=== PATIENT | female | born 1965 | race Caucasian/White ===

== ENCOUNTER 2017-10-15 07:35 | Outpatient (CLI) | payer OTHER ==
--- NOTE | 2017-10-15 08:16 | RAD ---
PA AND LATERAL CHEST: History: Chest pain. FINDINGS/IMPRESSION: The heart size is normal. The lungs are expanded without focal areas of consolidation, or pleural eff usions. There is linear atelectasis or scarring in the left lung. No acute osseous abnormalities are seen. POS: [facility]
== END 2017-10-15 07:36 | disposition home or self-care (01) ==
LOC: RAD-FRANK 07:35
PROVIDERS: ATTEND Nurse Practitioner Family
DX: R07.9 Chest pain, unspecified (principal); J98.11 Atelectasis
CPT/HCPCS: 71046

== ENCOUNTER 2017-10-16 12:59 | Emergency (ER) | payer OTHER ==
[2017-10-16] MEDS ORDERED: ISOVUE-370 76%-LOCM 1 ML ONE (13:05)
[2017-10-16 13:20] LABS: #Basophils 0.1 thou/uL (0.0-0.2); #Eosinphils 0.2 thou/uL (0.0-0.7); #Lymphocytes 2.3 thou/uL (1.20-3.40); #Monocytes 0.3 thou/uL (0.11-0.59); #Neutrophils 3.6 thou/uL (1.40-6.50); %Basophils 1.4 % (0.0-1.0); %Eosinophils 3.3 % (0.0-10.0); %Lymphocytes 35.5 % (21.0-51.0); %Monocytes 4.1 % (0.0-10.0); %Neutrophils 55.7 % (42.0-75.0); Hemoglobin 16.6 g/dL (12.0-16.0); Mean Corpuscular HGB CONC 34.9 g/dL (32.0-36.0); Mean Corpuscular Hemoglobin 34.2 pg (27.0-31.0); Mean Corpuscular Volume 97.7 fl (81.0-99.0); Mean Platelet Volume 7.9 fL (7.4-10.4); Platelet Count 210 thou/uL (130-400); RBC Distribution Width 11.8 % (11.5-14.5); Red Blood Cell (RBC) Count 4.86 mill/uL (4.20-5.40); White Blood Cell (WBC) Count 6.5 thou/uL (4.8-10.8)
[2017-10-16 13:41] LABS: CKMB 1.5 ng/mL (0-6.6); Troponin I Less than 0.010 ng/mL (< 0.028)
[2017-10-16 13:42] LABS: ALT (SGPT) 16 U/L (8-55); AST (SGOT) 23 U/L (5-34); Albumin 4.4 g/dL (3.5-5.0); Alkaline Phosphatase 74 U/L (40-150); Anion Gap 13 mmol/L (10-20); BUN (Urea Nitrogen) 11 mg/dL (9.8-20.1); Bilirubin, Total 0.4 mg/dL (0.2-1.2); Calc. Creatinine Clearance 0 mL/min (70-130); Calcium 9.7 mg/dL (7.8-10.44); Carbon Dioxide 25 mmol/L (22-29); Chloride 106 mmol/L (98-107); Estimated GFR-MDRD Greater than 90; Globulin 4.4 g/dL (2.4-3.5); Glucose 89 mg/dL (70-105); Protein, Total 8.8 g/dL (6.0-8.3); Sodium 139 mmol/L (136-145)
--- NOTE | 2017-10-16 13:46 | RAD ---
SINGLE VIEW OF THE CHEST: History: Chest pain. FINDINGS: Single view of the chest shows a normal sized cardiomediastinal silhouette. There is no evidence of c onsolidation, mass, or pleural effusion. The bones are unremarkable. IMPRESSION: No evidence of acute cardiopulmonary disease. POS: [facility]
--- NOTE | 2017-10-16 14:32 | CT ---
CTA OF THE THORAX UTILIZING IV CONTRAST WITH PE PROTOCOL AND 3D REFORMATTED IMAGING: Date: 10/16/17 INDICATION: Elevated D-Dimer and chest pain. COMPARISON: None. FINDINGS: No central or segmental pulmonary embolus is evident. There is moderate emphysema. No air space consolidation is evident. There is some subsegmental volume loss within the lingula. There is a 4 mm pulmonary nodule within the right middle lobe. There are areas of nodular soft tissue density seen within the central air column, particularly withi n the right mainstem bronchus, on image 47 of series 3 measuring 8.0 mm. Additional smaller nondepend ent densities are seen within the right interlobar bronchus on images 56, 60, and 62. There is some e ccentric soft tissue density seen within the posterior segmental branch of the left lower lobe on sawyer ge 74 of series 3. There is a density seen within the left upper lobe bronchus on image 58 of series 3. Short-term follow-up with preprocedure vigorous coughing is recommended to document if these lesio ns are related to mucus rather than airway soft tissue masses. No pathologically enlarged lymph nodes are evident. Visualized upper abdomen reveals no definite acute abnormality. There is scattered degenerative and o steoarthritic change. IMPRESSION: 1. No central or segmental pulmonary embolus demonstrated. 2. Eccentric soft tissue densities seen within the bronchi of the central chest may reflect eccentri c mucus deposits; however, papillomas cannot be entirely excluded. Follow up as above. 3. Moderate emphysema. CODE T. POS: [facility]
[2017-10-16] MEDS ORDERED: Morphine 10 MG/ML VIAL SLOW IVP SCH (14:45)
== END 2017-10-16 15:08 | disposition home or self-care (01) ==
LOC: ERS 12:59
DX: R07.89 Other chest pain (principal); I10 Essential (primary) hypertension; E78.00 Pure hypercholesterolemia, unspecified; F17.210 Nicotine dependence, cigarettes, uncomplicated; Z79.899 Other long term (current) drug therapy
CPT/HCPCS: 71045; 71275; 80053; 82553; 84484; 85025; 85379; 93005; 96374; J2270

== ENCOUNTER 2018-07-22 11:05 | Outpatient (CLI) | payer OTHER ==
--- NOTE | 2018-07-22 11:41 | RAD ---
LEFT FOOT THREE VIEWS: History: Left foot pain. FINDINGS/IMPRESSION: No fracture, dislocation, or bony destruction is identified. POS: [facility]
--- NOTE | 2018-07-22 12:03 | RAD ---
LEFT KNEE FOUR VIEWS: HISTORY: Left knee pain. FINDINGS: No fracture, dislocation, or bony destruction is identified. Minimal degenerative changes are presen t. POS: [facility]
== END 2018-07-22 11:06 | disposition home or self-care (01) ==
LOC: RAD-FRANK 11:05
PROVIDERS: ATTEND Nurse Practitioner Family
DX: M25.562 Pain in left knee (principal); M79.672 Pain in left foot; M17.12 Unilateral primary osteoarthritis, left knee

== ENCOUNTER 2018-09-10 13:45 | Outpatient (CLI) | payer OTHER ==
--- NOTE | 2018-09-10 14:55 | ULT ---
VENOUS DOPPLER ULTRASOUND OF LEFT LOWER EXTREMITY: Date: 09/10/18 HISTORY: Left foot pain, left lower extremity pain. TECHNIQUE: Soto scale ultrasound with color flow and spectral Doppler imaging of the deep venous system of the l eft lower extremity performed. FINDINGS: There is good flow, compression, and augmentation noted in the left common femoral, femoral, deep fem oral, popliteal, posterior tibial, and greater saphenous veins. IMPRESSION: No evidence of deep venous thrombosis in the left lower extremity. POS: [facility]
== END 2018-09-10 13:46 | disposition home or self-care (01) ==
LOC: BICULT 13:45
PROVIDERS: ATTEND Internal Medicine
DX: M79.672 Pain in left foot (principal); R68.89 Other general symptoms and signs

== ENCOUNTER 2018-12-30 09:01 | Outpatient (CLI) | payer OTHER ==
--- NOTE | 2019-01-25 10:33 | MMO ---
Bilateral MAMMO Bilat Screen [facility]. CLINICAL HISTORY: Patient is 53 years old and is seen for screening. The patient has no family history of breast cancer. The patient has no personal history of cancer. VIEWS: The views performed were: bilateral craniocaudal and bilateral mediolateral oblique. FILMS COMPARED: The present examination has been compared to a prior imaging study performed at [facility] on 03/29/2016. This study has been interpreted with the assistance of computer-aided detection. MAMMOGRAM FINDINGS: There are scattered fibroglandular densities. There are no suspicious masses, suspicious calcifications, or new areas of architectural distortion. IMPRESSION: THERE IS NO MAMMOGRAPHIC EVIDENCE OF MALIGNANCY. A ROUTINE FOLLOW-UP MAMMOGRAM IN 1 YEAR IS RECOMMENDED. ACR BI-RADS Category 1 - Negative MAMMOGRAPHY NOTE: 1. A negative mammogram report should not delay a biopsy if a dominant of clinically suspicious mass is present. 2. Approximately 10% to 15% of breast cancers are not detected by mammography. 3. Adenosis and dense breasts may obscure an underlying neoplasm.
== END 2018-12-30 09:02 | disposition home or self-care (01) ==
LOC: SCSMAMMO 09:01
PROVIDERS: ATTEND Nurse Practitioner Family
DX: Z12.31 Encounter for screening mammogram for malignant neoplasm of breast (principal)
CPT/HCPCS: 77067

== ENCOUNTER 2019-11-11 07:47 | Outpatient (CLI) | payer OTHER ==
--- NOTE | 2019-11-11 08:08 | RAD ---
EXAM: Two views chest PROVIDED CLINICAL HISTORY: Dyspnea COMPARISON: 10/15/2017 FINDINGS: Cardiac and mediastinal silhouette appears within normal limits. Lungs appear free of significant opa city. No pleural fluid or pneumothorax apparent. IMPRESSION: No evidence for an acute cardiopulmonary process.
== END 2019-11-11 07:48 | disposition home or self-care (01) ==
LOC: RAD-FRANK 07:47
PROVIDERS: ATTEND Nurse Practitioner Family
DX: R06.00 Dyspnea, unspecified (principal)
CPT/HCPCS: 71046

== ENCOUNTER 2019-11-18 12:06 | Outpatient (CLI) | payer OTHER ==
--- NOTE | 2019-11-18 13:09 | ULT ---
VENOUS DOPPLER ULTRASOUND OF THE LEFT LOWER EXTREMITY: HISTORY: Edema of the left lower extremity. TECHNIQUE: Soto scale ultrasound with color flow and spectral Doppler imaging of the deep venous system of the l eft lower extremity was performed. FINDINGS: There is good flow, compression, and augmentation of the left common femoral, femoral, deep femoral, popliteal, posterior tibial, and greater saphenous veins. IMPRESSION: No evidence of deep vein thrombosis of the left lower extremity. POS: [facility]
== END 2019-11-18 12:07 | disposition home or self-care (01) ==
LOC: BICULT 12:06
PROVIDERS: ATTEND Nurse Practitioner Family
DX: M79.89 Other specified soft tissue disorders (principal)

== ENCOUNTER 2022-11-06 13:14 | Outpatient (CLI) | payer OTHER | END 2022-11-06 13:15 | disposition home or self-care (01) | LOC: SCSMRI 13:14 | PROVIDERS: ATTEND Psychiatry & Neurology Neurology | DX: G95.9 Disease of spinal cord, unspecified (principal); I67.82 Cerebral ischemia; M47.816 Spondylosis without myelopathy or radiculopathy, lumbar region; M51.36 Other intervertebral disc degeneration, lumbar region | CPT/HCPCS: 70553; 72148; 82565 ==

== ENCOUNTER 2022-11-14 09:33 | Outpatient (CLI) | payer OTHER | END 2022-11-14 09:34 | disposition home or self-care (01) | LOC: SCSMRI 09:33 | PROVIDERS: ATTEND Psychiatry & Neurology Neurology | DX: G95.9 Disease of spinal cord, unspecified (principal) | CPT/HCPCS: 72156; 72157 ==

== ENCOUNTER 2023-02-26 07:28 | Outpatient (CLI) | payer OTHER ==
[2023-02-26 08:42] LABS: Hemoglobin 15.6 g/dL (12.0-15.5); Mean Corpuscular HGB CONC 33.4 g/dL (32.0-36.0); Mean Corpuscular Hemoglobin 31.8 pg (27.0-33.0); Mean Corpuscular Volume 95.3 fl (81.6-98.3); Mean Platelet Volume 9.9 fl (7.4-10.4); Platelet Count 283 10x3/uL (150-450); RBC Distribution Width 12.2 % (11.5-14.5); White Blood Cell (WBC) Count 8.9 10x3/uL (3.5-10.5)
[2023-02-26 08:56] LABS: Anion Gap 13 mmol/L (10-20); BUN (Urea Nitrogen) 12 mg/dL (9.8-20.1); Calc. Creatinine Clearance 0 mL/min (70-130); Calcium 9.8 mg/dL (7.8-10.44); Carbon Dioxide 29 mmol/L (22-29); Chloride 102 mmol/L (98-107); Estimated GFR 93; Glucose 83 mg/dL (70-105); Potassium 4.2 mmol/L (3.5-5.1); Sodium 140 mmol/L (136-145)
== END 2023-02-26 07:29 | disposition home or self-care (01) ==
LOC: LABBT 07:28
PROVIDERS: ATTEND Neurological Surgery
DX: Z01.818 Encounter for other preprocedural examination (principal); G95.9 Disease of spinal cord, unspecified
CPT/HCPCS: 80048; 85027; 93005; 93010

== ENCOUNTER 2023-03-09 09:08 | Inpatient (IN) | payer OTHER ==
[2023-03-09] MEDS ORDERED: Cefepime 2 GM VIAL ONE (11:19)
[2023-03-09 11:27] LABS: Bacteria/HPF None Seen HPF (None Seen); Bilirubin Negative (Negative); Blood, Urine 1+ (Negative); CAUTI Indications for Culture Fever or rigors; Clarity Clear (Clear); Glucose, Urine (Dipstick) Normal (Negative); Ketone, Urine Negative (Negative); Leukocyte Negative Leu/uL (Negative); Nitrite Negative (Negative); Protein, Urine (Dipstick) Negative (Neg-Trace); Specific Gravity, Urine 1.008 (1.002-1.036); Squamous Epithelial 0-3 HPF (0-3); Urobilinogen Normal mg/dL (Less than 2); WBC/HPF 0-3 HPF (0-3)
[2023-03-09 11:29] LABS: Urine Culture Reflex No No
[2023-03-09 11:31] LABS: #Basophils 0.1 thou/uL (0.0-0.2); #Eosinphils 0.1 thou/uL (0.0-0.7); #Monocytes 0.6 thou/uL (0.11-0.59); #Neutrophils 6.9 thou/uL (1.40-6.50); %Basophils 0.8 % (0.0-1.0); %Eosinophils 1.3 % (0.0-10.0); %Lymphocytes 15.8 % (21.0-51.0); %Monocytes 6.7 % (0.0-10.0); Hemoglobin 11.6 g/dL (12.0-16.0); Mean Corpuscular HGB CONC 33.4 g/dL (32.0-36.0); Mean Corpuscular Hemoglobin 32.8 pg (27.0-31.0); Platelet Count 205 10x3/uL (130-400); Red Blood Cell (RBC) Count 3.54 mill/uL (4.20-5.40); White Blood Cell (WBC) Count 9.2 10x3/uL (4.8-10.8)
[2023-03-09 11:45] LABS: Prothrombin Time 13.9 sec (12.0-14.7)
[2023-03-09 11:46] LABS: PTT 31.5 sec (22.9-36.1)
[2023-03-09 11:52] LABS: ALT (SGPT) 8 U/L (8-55); AST (SGOT) 17 U/L (5-34); Albumin 3.4 g/dL (3.5-5.0); Alkaline Phosphatase 50 U/L (40-110); Anion Gap 13 mmol/L (10-20); BUN (Urea Nitrogen) 9 mg/dL (9.8-20.1); Bilirubin, Total 0.9 mg/dL (0.2-1.2); Calc. Creatinine Clearance 0 mL/min (70-130); Carbon Dioxide 25 mmol/L (22-29); Chloride 104 mmol/L (98-107); Estimated GFR 102; Glucose 93 mg/dL (70-105); Potassium 3.9 mmol/L (3.5-5.1); Protein, Total 6.4 g/dL (6.0-8.3); Sodium 138 mmol/L (136-145)
[2023-03-09] MEDS ORDERED: HYDROcodone/Acetaminophen 5/325 mg Tablet ONE (13:38)
[2023-03-09] MEDS ORDERED: Vancomycin 1 GM in Premix Bag 1 BAG IVPB SCH (14:15)
[2023-03-09] MEDS ORDERED: Bisacodyl 10 MG SUPP PR PRN (15:46)
[2023-03-09 15:52] VITALS: BMI 22.9
[2023-03-09] MEDS ORDERED: Vancomycin 1.5 GRAM/300 ML BAG 1.5 GM in Premix Bag 1 BAG IVPB SCH (16:45)
[2023-03-09 17:18] LABS: SARS-CoV-2 NAA Rapid Test Not Detected (NotDetected)
[2023-03-09] MEDS: Nicotine 21 MG PATCH TD SCH (17:28)
[2023-03-09] MEDS: HYDROcodone/Acetaminophen 5/325 mg Tablet PO PRN (20:11)
[2023-03-09] MEDS: Cefepime 2 GM in Sodium Chloride 0.9% 100 ML IVPB SCH (20:11)
[2023-03-10] MEDS: Benzonatate 100 MG CAP PO PRN ×3 (00:30→17:22)
[2023-03-10] MEDS: HYDROcodone/Acetaminophen 5/325 mg Tablet PO PRN ×4 (00:30→20:38)
[2023-03-10] MEDS: Vancomycin 1 GM in Premix Bag 1 BAG IVPB SCH ×2 (05:27→17:21)
[2023-03-10] MEDS: Cefepime 2 GM in Sodium Chloride 0.9% 100 ML IVPB SCH ×3 (09:12→20:38)
[2023-03-10] MEDS: GUAIFENESIN SF SOLN 200 MG/10 ML UDCUP PO PRN ×2 (09:12→17:22)
[2023-03-10] MEDS: Lisinopril/Hydrochlorothiazide 10 mg/12.5 mg Tablet PO SCH (09:12)
[2023-03-10 12:34] LABS: #Basophils 0.1 thou/uL (0.0-0.2); #Eosinphils 0.1 thou/uL (0.0-0.7); #Monocytes 0.6 thou/uL (0.11-0.59); #Neutrophils 5.7 thou/uL (1.40-6.50); %Basophils 0.9 % (0.0-1.0); %Eosinophils 1.9 % (0.0-10.0); %Lymphocytes 13.7 % (21.0-51.0); %Monocytes 7.4 % (0.0-10.0); %Neutrophils 75.7 % (42.0-75.0); Hemoglobin 10.7 g/dL (12.0-16.0); Mean Corpuscular HGB CONC 33.5 g/dL (32.0-36.0); Mean Corpuscular Hemoglobin 32.5 pg (27.0-31.0); Mean Platelet Volume 9.9 fL (7.4-10.4); Platelet Count 182 10x3/uL (130-400); RBC Distribution Width 12.2 % (11.5-14.5); Red Blood Cell (RBC) Count 3.29 mill/uL (4.20-5.40); White Blood Cell (WBC) Count 7.5 10x3/uL (4.8-10.8)
[2023-03-10 12:58] LABS: Anion Gap 11 mmol/L (10-20); BUN (Urea Nitrogen) 9 mg/dL (9.8-20.1); Calc. Creatinine Clearance 126 mL/min (70-130); Calcium 8.7 mg/dL (7.8-10.44); Carbon Dioxide 25 mmol/L (22-29); Chloride 103 mmol/L (98-107); Estimated GFR 103; Glucose 108 mg/dL (70-105); Potassium 3.8 mmol/L (3.5-5.1); Sodium 135 mmol/L (136-145)
[2023-03-10] MEDS: Nicotine 21 MG PATCH TD SCH (14:45)
[2023-03-10] MEDS: Cyclobenzaprine 10 MG TAB PO PRN (15:01)
[2023-03-10] MEDS ORDERED: Non-Formulary Item 1 EACH (Cephalexin [Keflex] 500 MG Cap) PO SCH (17:00)
[2023-03-10] MEDS: Acetaminophen 325 MG TAB PO PRN (17:21)
[2023-03-11 05:26] LABS: Vancomycin, Trough 6.3 ug/mL
[2023-03-11] MEDS: Vancomycin 1 GM in Premix Bag 1 BAG IVPB SCH (05:48)
[2023-03-11] MEDS: VANCOMYCIN 1.25 GM/250 ML BAG 1.25 GM in Premix Bag 1 BAG IVPB SCH ×3 (05:54→21:00)
[2023-03-11] MEDS: Cyclobenzaprine 10 MG TAB PO PRN ×2 (05:58→15:00)
[2023-03-11] MEDS: HYDROcodone/Acetaminophen 5/325 mg Tablet PO PRN ×4 (05:58→21:00)
[2023-03-11] MEDS: Lisinopril/Hydrochlorothiazide 10 mg/12.5 mg Tablet PO SCH (08:02)
[2023-03-11] MEDS: Cefepime 2 GM in Sodium Chloride 0.9% 100 ML IVPB SCH ×2 (08:02→20:58)
[2023-03-11] MEDS: Benzonatate 100 MG CAP PO PRN ×2 (08:40→15:00)
[2023-03-11] MEDS: GUAIFENESIN SF SOLN 200 MG/10 ML UDCUP PO PRN ×2 (08:40→15:01)
[2023-03-11] MEDS: Acetaminophen 325 MG TAB PO PRN (08:40)
[2023-03-11] MEDS: Saccharomyces boulardii 250 MG CAP PO SCH ×2 (08:41→20:59)
[2023-03-11] MEDS: Loratadine 10 MG TAB PO PRN (08:41)
[2023-03-11] MEDS: Nicotine 21 MG PATCH TD SCH (15:02)
[2023-03-12] MEDS: Cyclobenzaprine 10 MG TAB PO PRN ×3 (05:45→21:24)
[2023-03-12] MEDS: Acetaminophen 325 MG TAB PO PRN ×3 (05:50→21:28)
[2023-03-12] MEDS ORDERED: Vancomycin 1 GM in Premix Bag 1 BAG IVPB SCH (06:00)
[2023-03-12] MEDS: Saccharomyces boulardii 250 MG CAP PO SCH ×2 (07:58→21:24)
[2023-03-12] MEDS: GUAIFENESIN SF SOLN 200 MG/10 ML UDCUP PO PRN ×2 (07:58→14:35)
[2023-03-12] MEDS: Cefepime 2 GM in Sodium Chloride 0.9% 100 ML IVPB SCH ×2 (07:58→21:24)
[2023-03-12] MEDS: Loratadine 10 MG TAB PO PRN (07:58)
[2023-03-12] MEDS: Benzonatate 100 MG CAP PO PRN ×2 (07:58→14:36)
[2023-03-12] MEDS: Lisinopril/Hydrochlorothiazide 10 mg/12.5 mg Tablet PO SCH (07:58)
[2023-03-12] MEDS: HYDROcodone/Acetaminophen 5/325 mg Tablet PO PRN (12:14)
[2023-03-12] MEDS: Nicotine 21 MG PATCH TD SCH (15:31)
[2023-03-13] MEDS: Acetaminophen 325 MG TAB PO PRN ×3 (02:25→20:49)
[2023-03-13] MEDS ORDERED: Sodium Chloride 0.9% 500 ML IV SCH (08:45)
[2023-03-13 09:25] LABS: #Basophils 0.1 thou/uL (0.0-0.2); #Eosinphils 0.2 thou/uL (0.0-0.7); #Monocytes 0.5 thou/uL (0.11-0.59); #Neutrophils 3.4 thou/uL (1.40-6.50); %Basophils 1.1 % (0.0-1.0); %Eosinophils 4.2 % (0.0-10.0); %Lymphocytes 13.5 % (21.0-51.0); %Monocytes 9.9 % (0.0-10.0); %Neutrophils 70.9 % (42.0-75.0); Hemoglobin 11.1 g/dL (12.0-16.0); Mean Corpuscular HGB CONC 32.6 g/dL (32.0-36.0); Mean Corpuscular Hemoglobin 31.6 pg (27.0-31.0); Mean Corpuscular Volume 97.2 fl (78.0-98.0); Mean Platelet Volume 9.8 fL (7.4-10.4); Platelet Count 250 10x3/uL (130-400); RBC Distribution Width 12.3 % (11.5-14.5); Red Blood Cell (RBC) Count 3.51 mill/uL (4.20-5.40); White Blood Cell (WBC) Count 4.7 10x3/uL (4.8-10.8)
[2023-03-13 09:58] LABS: Anion Gap 16 mmol/L (10-20); BUN (Urea Nitrogen) 11 mg/dL (9.8-20.1); Calc. Creatinine Clearance 118 mL/min (70-130); Calcium 9.5 mg/dL (7.8-10.44); Carbon Dioxide 25 mmol/L (22-29); Chloride 103 mmol/L (98-107); Estimated GFR 102; Glucose 100 mg/dL (70-105); Potassium 3.7 mmol/L (3.5-5.1); Sodium 140 mmol/L (136-145)
[2023-03-13] MEDS: Sodium Chloride 0.9% 1,000 ML IV SCH (10:46)
[2023-03-13] MEDS: Cefepime 2 GM in Sodium Chloride 0.9% 100 ML IVPB SCH ×2 (10:46→20:49)
[2023-03-13] MEDS: Saccharomyces boulardii 250 MG CAP PO SCH ×2 (10:46→20:49)
[2023-03-13] MEDS: Cyclobenzaprine 10 MG TAB PO PRN (13:21)
[2023-03-13] MEDS: Nicotine 21 MG PATCH TD SCH (14:41)
[2023-03-14] MEDS: Sodium Chloride 0.9% 1,000 ML IV SCH ×2 (00:31→13:01)
[2023-03-14] MEDS: HYDROcodone/Acetaminophen 5/325 mg Tablet PO PRN ×2 (02:45→20:04)
[2023-03-14] MEDS: Saccharomyces boulardii 250 MG CAP PO SCH ×2 (09:14→19:59)
[2023-03-14] MEDS: Cefepime 2 GM in Sodium Chloride 0.9% 100 ML IVPB SCH ×2 (09:14→19:58)
[2023-03-14] MEDS: Nicotine 21 MG PATCH TD SCH (16:27)
[2023-03-14] MEDS: Cyclobenzaprine 10 MG TAB PO PRN (16:30)
[2023-03-15] MEDS: Sodium Chloride 0.9% 1,000 ML IV SCH ×2 (01:48→17:06)
[2023-03-15] MEDS: Saccharomyces boulardii 250 MG CAP PO SCH (09:14)
[2023-03-15] MEDS: Cefepime 2 GM in Sodium Chloride 0.9% 100 ML IVPB SCH (09:14)
[2023-03-15] MEDS: Cyclobenzaprine 10 MG TAB PO PRN (09:15)
[2023-03-15 12:23] VITALS: TEMP 99.3
[2023-03-15 15:57] VITALS: BP 125/66
== END 2023-03-15 15:13 | DRG 194 ==
LOC: ERS 09:08 → T4-B 13:34 → OBSVTOIN 03-10 17:36
PROVIDERS: ADMIT Internal Medicine; ATTEND Internal Medicine
DX: J18.9 Pneumonia, unspecified organism (principal); J98.11 Atelectasis; I10 Essential (primary) hypertension; E78.5 Hyperlipidemia, unspecified; F17.210 Nicotine dependence, cigarettes, uncomplicated; R50.9 Fever, unspecified; Z20.822 Contact with and (suspected) exposure to COVID-19; Z79.899 Other long term (current) drug therapy; Z90.710 Acquired absence of both cervix and uterus
CPT/HCPCS: 36415; 36416; 51701; 51798; 71045; 72128; 80048; 80053; 80202; 81001; 83605; 84443; 85025; 85610; 85730; 87040; 87086; 87633; 94760; 96365; 96367; 96375; 96376; G0378; J0692; J1956; J3370; J3370-JW; J3490; J7030; J7050; U0002

== ENCOUNTER 2023-04-18 20:43 | Inpatient (IN) | payer OTHER ==
[2023-04-18] MEDS ORDERED: fentaNYL 50 mcg/mL 1 mL Vial ONE (22:09)
[2023-04-18] MEDS ORDERED: Pramipexole Di-HCl 1 MG TAB PO SCH (22:15)
[2023-04-18] MEDS ORDERED: Ondansetron PF 4 MG/2 ML Vial IVP PRN (22:49)
[2023-04-18] MEDS ORDERED: Ipratropium/Albuterol 3 ML NEB NEB PRN (22:49)
[2023-04-18] MEDS ORDERED: traMADol HCl 50 MG TAB PO PRN (22:51)
[2023-04-18] MEDS ORDERED: Loratadine 10 MG TAB PO PRN (22:51)
[2023-04-18 22:58] LABS: #Basophils 0.1 thou/uL (0.0-0.2); #Eosinphils 0.1 thou/uL (0.0-0.7); #Monocytes 0.5 thou/uL (0.11-0.59); %Basophils 0.5 % (0.0-1.0); %Eosinophils 0.6 % (0.0-10.0); %Lymphocytes 16.5 % (21.0-51.0); Hematocrit 40.7 % (36.0-47.0); Hemoglobin 13.2 g/dL (12.0-16.0); Mean Corpuscular HGB CONC 32.4 g/dL (32.0-36.0); Mean Corpuscular Hemoglobin 31.5 pg (27.0-31.0); Mean Corpuscular Volume 97.1 fl (78.0-98.0); Mean Platelet Volume 10.1 fL (7.4-10.4); Platelet Count 225 10x3/uL (130-400); RBC Distribution Width 13.6 % (11.5-14.5); Red Blood Cell (RBC) Count 4.19 mill/uL (4.20-5.40); White Blood Cell (WBC) Count 12.9 10x3/uL (4.8-10.8)
[2023-04-18 23:12] LABS: Prothrombin Time 13.6 sec (12.0-14.7)
[2023-04-18 23:13] LABS: PTT 28.3 sec (22.9-36.1)
[2023-04-18 23:27] LABS: ALT (SGPT) 9 U/L (8-55); AST (SGOT) 14 U/L (5-34); Alkaline Phosphatase 59 U/L (40-110); Anion Gap 12 mmol/L (10-20); BUN (Urea Nitrogen) 14 mg/dL (9.8-20.1); Bilirubin, Total 0.3 mg/dL (0.2-1.2); CK (CPK) 37 U/L (29-168); Calc. Creatinine Clearance 0 mL/min (70-130); Calcium 9.5 mg/dL (7.8-10.44); Carbon Dioxide 23 mmol/L (22-29); Chloride 107 mmol/L (98-107); Estimated GFR 98; Globulin 3.4 g/dL (2.4-3.5); Glucose 105 mg/dL (70-105); Potassium 4.2 mmol/L (3.5-5.1); Protein, Total 7.4 g/dL (6.0-8.3); Sodium 138 mmol/L (136-145)
[2023-04-19] MEDS: Cyclobenzaprine 10 MG TAB PO PRN ×2 (01:02→20:35)
[2023-04-19] MEDS: Sodium Chloride 0.9% 1,000 ML IV SCH ×4 (01:02→23:37)
[2023-04-19] MEDS: Morphine 2 MG/ML VIAL SLOW IVP PRN ×4 (01:03→20:36)
[2023-04-19] MEDS: Acetaminophen 500 MG TAB PO SCH ×5 (01:04→22:47)
[2023-04-19] MEDS: traMADol HCl 50 MG TAB PO SCH ×5 (01:04→22:48)
[2023-04-19 02:44] VITALS: BMI 23.3
[2023-04-19 05:21] LABS: #Basophils 0.1 thou/uL (0.0-0.2); #Eosinphils 0.2 thou/uL (0.0-0.7); #Monocytes 0.3 thou/uL (0.11-0.59); #Neutrophils 5.1 thou/uL (1.40-6.50); %Basophils 0.8 % (0.0-1.0); %Lymphocytes 20.7 % (21.0-51.0); %Monocytes 4.7 % (0.0-10.0); %Neutrophils 70.7 % (42.0-75.0); Mean Corpuscular HGB CONC 32.4 g/dL (32.0-36.0); Mean Corpuscular Hemoglobin 31.3 pg (27.0-31.0); Mean Corpuscular Volume 96.4 fl (78.0-98.0); Mean Platelet Volume 10.3 fL (7.4-10.4); Platelet Count 193 10x3/uL (130-400); RBC Distribution Width 13.6 % (11.5-14.5); Red Blood Cell (RBC) Count 3.84 mill/uL (4.20-5.40); White Blood Cell (WBC) Count 7.2 10x3/uL (4.8-10.8)
[2023-04-19 05:43] LABS: Anion Gap 9 mmol/L (10-20); BUN (Urea Nitrogen) 11 mg/dL (9.8-20.1); Calc. Creatinine Clearance 130 mL/min (70-130); Calcium 8.9 mg/dL (7.8-10.44); Carbon Dioxide 26 mmol/L (22-29); Chloride 108 mmol/L (98-107); Estimated GFR 104; Glucose 100 mg/dL (70-105); Potassium 3.7 mmol/L (3.5-5.1); Sodium 139 mmol/L (136-145)
[2023-04-19] MEDS: Famotidine/PF 20 mg/2ml Vial SLOW IVP SCH ×2 (07:46→20:36)
[2023-04-19] MEDS: Senokot S 8.6-50 MG TAB PO SCH ×2 (07:46→20:36)
[2023-04-19] MEDS: Polyethylene Glycol 3350 17 GM Packet PO SCH (07:46)
[2023-04-19 17:52] LABS: Bacteria/HPF None Seen HPF (None Seen); Bilirubin Negative (Negative); Blood, Urine 1+ (Negative); CAUTI Indications for Culture Pelvic or flank pain; Clarity Clear (Clear); Glucose, Urine (Dipstick) Normal (Negative); Ketone, Urine Negative (Negative); Leukocyte Negative Leu/uL (Negative); Nitrite 2+ (Negative); Protein, Urine (Dipstick) Negative (Neg-Trace); RBC/HPF 0-3 HPF (0-3); Specific Gravity, Urine 1.018 (1.002-1.036); Squamous Epithelial 0-3 HPF (0-3); Urobilinogen Normal mg/dL (Less than 2); WBC/HPF 0-3 HPF (0-3); pH, Urine 6.5 (5.0-9.0)
[2023-04-19 17:57] LABS: Urine Culture Reflex No No
[2023-04-19] MEDS ORDERED: Pramipexole Di-HCl 1 MG TAB PO SCH (22:00)
[2023-04-20 05:05] LABS: #Basophils 0.1 thou/uL (0.0-0.2); #Eosinphils 0.3 thou/uL (0.0-0.7); #Monocytes 0.3 thou/uL (0.11-0.59); #Neutrophils 3.7 thou/uL (1.40-6.50); %Basophils 0.8 % (0.0-1.0); %Eosinophils 4.8 % (0.0-10.0); %Lymphocytes 26.1 % (21.0-51.0); %Monocytes 5.7 % (0.0-10.0); %Neutrophils 62.3 % (42.0-75.0); Hematocrit 34.3 % (36.0-47.0); Hemoglobin 11.3 g/dL (12.0-16.0); Mean Corpuscular HGB CONC 32.9 g/dL (32.0-36.0); Mean Corpuscular Hemoglobin 31.8 pg (27.0-31.0); Mean Corpuscular Volume 96.6 fl (78.0-98.0); Platelet Count 160 10x3/uL (130-400); RBC Distribution Width 13.1 % (11.5-14.5); Red Blood Cell (RBC) Count 3.55 mill/uL (4.20-5.40)
[2023-04-20] MEDS: Acetaminophen 500 MG TAB PO SCH ×3 (05:23→17:07)
[2023-04-20] MEDS: traMADol HCl 50 MG TAB PO SCH (05:23)
[2023-04-20] MEDS: Morphine 2 MG/ML VIAL SLOW IVP PRN (06:03)
[2023-04-20] MEDS ORDERED: Sodium Chloride 0.9% 100 ML ONE (07:19)
[2023-04-20] MEDS ORDERED: Vancomycin (BATCH) 1.5 GRAM/300 ML BAG ONE (07:19)
[2023-04-20] MEDS ORDERED: Tranexamic Acid 1,000 MG/10 ML VIAL ONE (07:19)
[2023-04-20] MEDS ORDERED: fentaNYL PF 100 MCG/2 ML SYRINGE ONE (07:25)
[2023-04-20] MEDS ORDERED: Ondansetron HCl/PF 4 MG/2 ML Vial IVP PRN (07:43)
[2023-04-20] MEDS ORDERED: Promethazine HCl 25 MG/ML VIAL IM PRN ×3 (07:43→10:21)
[2023-04-20] MEDS ORDERED: Meperidine HCl/PF 25 MG/ML VIAL SLOW IVP PRN ×2 (07:43)
[2023-04-20] MEDS ORDERED: HYDROmorphone 2 MG/ML VIAL SLOW IVP PRN (07:43)
[2023-04-20] MEDS ORDERED: Tranexamic Acid 1,000 MG in Sodium Chloride 0.9% 250 ML 250 ML IVPB SCH (08:00)
[2023-04-20] MEDS ORDERED: Vancomycin 1.5 GRAM/300 ML BAG 1.5 GM in Premix Bag 1 BAG IVPB SCH (08:00)
[2023-04-20] MEDS ORDERED: CEFAZOLIN 2 GM in Sodium Chloride 0.9% 100 ML IVPB SCH (08:00)
[2023-04-20] MEDS ORDERED: Dexamethasone 20 MG/5 ML VIAL ONE (08:13)
[2023-04-20] MEDS ORDERED: PHENYLEPHRINE-NS 100 MCG/ML 10 ML SYRINGE ONE (08:13)
[2023-04-20] MEDS ORDERED: Ondansetron PF 4 MG/2 ML Vial ONE (08:13)
[2023-04-20] MEDS ORDERED: Lidocaine 1% PF 5 ML VIAL ONE (08:13)
[2023-04-20] MEDS ORDERED: PROPOFOL 200 MG/20 ML VIAL ONE (08:13)
[2023-04-20] MEDS ORDERED: Rocuronium Bromide 10 MG/ML (10ML VIAL) ONE (08:13)
[2023-04-20] MEDS: Famotidine/PF 20 mg/2ml Vial SLOW IVP SCH ×2 (08:16→21:01)
[2023-04-20] MEDS: Senokot S 8.6-50 MG TAB PO SCH ×2 (08:16→21:01)
[2023-04-20] MEDS: Polyethylene Glycol 3350 17 GM Packet PO SCH (08:16)
[2023-04-20] MEDS ORDERED: SUGAMMADEX SODIUM 200 MG/2 ML VIAL ONE (09:56)
[2023-04-20] MEDS ORDERED: diphenhydrAMINE 25 MG CAP PO PRN ×2 (10:20→10:21)
[2023-04-20] MEDS ORDERED: diphenhydrAMINE 50 MG/ML VIAL IM PRN ×2 (10:20→10:21)
[2023-04-20] MEDS ORDERED: FENTANYL 500 MCG/10 ML VIAL 2,000 MCG in Sodium Chloride 0.9% 60 ML IV PRN (10:20)
[2023-04-20] MEDS ORDERED: Naloxone HCl 0.4 mg/ml Vial IV PRN ×2 (10:20→10:21)
[2023-04-20] MEDS ORDERED: diphenhydrAMINE 50 MG/ML VIAL IVP PRN ×2 (10:20→10:21)
[2023-04-20] MEDS ORDERED: Ondansetron PF 4 MG/2 ML Vial IVP PRN ×2 (10:20→10:21)
[2023-04-20] MEDS ORDERED: Zolpidem Tartrate 5 MG TAB PO PRN ×2 (10:20→10:21)
[2023-04-20] MEDS ORDERED: fentaNYL 50 mcg/mL 1 mL Vial ONE ×2 (10:27→10:32)
[2023-04-20] MEDS ORDERED: Communication Order-Pharmacy FS SCH ×2 (10:30)
[2023-04-20] MEDS ORDERED: HYDROmorphone 0.5 MG/0.5 ML SYRINGE ONE ×3 (10:32→10:55)
[2023-04-20] MEDS: CEFAZOLIN 2 GM in Sodium Chloride 0.9% 100 ML IVPB SCH (17:08)
[2023-04-20] MEDS: Pramipexole Di-HCl 1 MG TAB PO SCH (21:01)
[2023-04-20] MEDS: Cyclobenzaprine 10 MG TAB PO PRN (21:01)
[2023-04-21] MEDS: Acetaminophen 500 MG TAB PO SCH ×3 (00:31→11:25)
[2023-04-21] MEDS: CEFAZOLIN 2 GM in Sodium Chloride 0.9% 100 ML IVPB SCH ×2 (02:46→08:25)
[2023-04-21 04:59] LABS: #Basophils 0.1 thou/uL (0.0-0.2); #Eosinphils 0.1 thou/uL (0.0-0.7); #Monocytes 0.5 thou/uL (0.11-0.59); #Neutrophils 5.5 thou/uL (1.40-6.50); %Basophils 0.8 % (0.0-1.0); %Eosinophils 1.1 % (0.0-10.0); %Lymphocytes 16.6 % (21.0-51.0); %Monocytes 6.4 % (0.0-10.0); %Neutrophils 74.6 % (42.0-75.0); Hematocrit 28.4 % (36.0-47.0); Hemoglobin 9.4 g/dL (12.0-16.0); Mean Corpuscular HGB CONC 33.1 g/dL (32.0-36.0); Mean Corpuscular Hemoglobin 32.3 pg (27.0-31.0); Mean Corpuscular Volume 97.6 fl (78.0-98.0); Mean Platelet Volume 10.5 fL (7.4-10.4); Platelet Count 148 10x3/uL (130-400); RBC Distribution Width 13.2 % (11.5-14.5); Red Blood Cell (RBC) Count 2.91 mill/uL (4.20-5.40); White Blood Cell (WBC) Count 7.3 10x3/uL (4.8-10.8)
[2023-04-21] MEDS: Cyclobenzaprine 10 MG TAB PO PRN ×2 (05:37→14:04)
[2023-04-21] MEDS: Aspirin 81 mg Enteric Coated Tablet PO SCH ×2 (08:24→20:06)
[2023-04-21] MEDS: Senokot S 8.6-50 MG TAB PO SCH ×2 (08:24→20:05)
[2023-04-21] MEDS: Polyethylene Glycol 3350 17 GM Packet PO SCH (08:25)
[2023-04-21] MEDS: Famotidine/PF 20 mg/2ml Vial SLOW IVP SCH ×2 (08:25→20:06)
[2023-04-21] MEDS ORDERED: Morphine 2 MG/ML VIAL SLOW IVP PRN (08:58)
[2023-04-21] MEDS ORDERED: Ketorolac Tromethamine 30 MG/ML VIAL IVP SCH (09:00)
[2023-04-21] MEDS: Gabapentin 300 MG CAP PO SCH ×3 (09:42→20:04)
[2023-04-21] MEDS ORDERED: Acetaminophen/Codeine 30-300mg Tablet PO PRN (10:38)
[2023-04-21] MEDS: traMADol HCl 50 MG TAB PO SCH ×3 (11:24→23:38)
[2023-04-21] MEDS: Ketorolac Tromethamine 30 MG/ML VIAL IVP SCH ×3 (11:24→23:39)
[2023-04-21] MEDS: Acetaminophen/Codeine 30-300mg Tablet PO PRN ×2 (14:05→20:07)
[2023-04-21] MEDS: Acetaminophen 325 MG TAB PO SCH ×2 (17:12→23:38)
[2023-04-21] MEDS: Pramipexole Di-HCl 1 MG TAB PO SCH (20:06)
[2023-04-21] MEDS: tiZANidine HCl 4 MG TAB PO SCH (20:06)
[2023-04-21] MEDS ORDERED: tiZANidine HCl 4 MG TAB PO SCH (21:00)
[2023-04-22] MEDS: traMADol HCl 50 MG TAB PO SCH ×4 (05:28→23:27)
[2023-04-22] MEDS: Ketorolac Tromethamine 30 MG/ML VIAL IVP SCH ×4 (05:29→23:28)
[2023-04-22] MEDS: Acetaminophen 325 MG TAB PO SCH ×4 (05:29→23:29)
[2023-04-22] MEDS: Aspirin 81 mg Enteric Coated Tablet PO SCH ×2 (09:31→21:09)
[2023-04-22] MEDS: Polyethylene Glycol 3350 17 GM Packet PO SCH (09:31)
[2023-04-22] MEDS: tiZANidine HCl 4 MG TAB PO SCH ×2 (09:31→21:09)
[2023-04-22] MEDS: Famotidine/PF 20 mg/2ml Vial SLOW IVP SCH ×2 (09:31→21:08)
[2023-04-22] MEDS: Senokot S 8.6-50 MG TAB PO SCH ×2 (09:31→21:08)
[2023-04-22 11:35] LABS: Delete Auto Diff?? YES; Hematocrit 28.3 % (36.0-47.0); Manual Diff?? YES; Mean Corpuscular HGB CONC 31.8 g/dL (32.0-36.0); Mean Corpuscular Hemoglobin 31.8 pg (27.0-31.0); Mean Platelet Volume 10.2 fL (7.4-10.4); Platelet Count 160 10x3/uL (130-400); RBC Distribution Width 13.5 % (11.5-14.5); Red Blood Cell (RBC) Count 2.83 mill/uL (4.20-5.40); White Blood Cell (WBC) Count 6.5 10x3/uL (4.8-10.8)
[2023-04-22 11:59] LABS: ALT (SGPT) 9 U/L (8-55); AST (SGOT) 14 U/L (5-34); Albumin 3.1 g/dL (3.5-5.0); Alkaline Phosphatase 51 U/L (40-110); Anion Gap 11 mmol/L (10-20); BUN (Urea Nitrogen) 16 mg/dL (9.8-20.1); Bilirubin, Total 0.3 mg/dL (0.2-1.2); Calc. Creatinine Clearance 118 mL/min (70-130); Calcium 8.5 mg/dL (7.8-10.44); Carbon Dioxide 25 mmol/L (22-29); Chloride 104 mmol/L (98-107); Estimated GFR 101; Globulin 2.7 g/dL (2.4-3.5); Glucose 84 mg/dL (70-105); Potassium 3.4 mmol/L (3.5-5.1); Protein, Total 5.8 g/dL (6.0-8.3); Sodium 137 mmol/L (136-145)
[2023-04-22 12:06] LABS: Band 3 % (5-11); CellaVision Operator ID LAB.GE; Eosinophils 5 % (0-10); Giant Platelets 0.9 % (0-5); Large Platelets 2.6 % (0-5); Lymphocytes 27 % (21-51); Monocytes 3 % (0-10); Neutrophil 59 % (42-75); Platelet Adequacy Comment Platelets Normal; Polychromasia SLIGHT = 2-3 cells HPF (0-2); Reactive Lymphocytes 1 % (0-10); Total Cell Count 117
[2023-04-22] MEDS: Gabapentin 300 MG CAP PO SCH (15:15)
[2023-04-22] MEDS: Gabapentin 400 MG CAP PO SCH ×2 (15:17→21:09)
[2023-04-22] MEDS: Pramipexole Di-HCl 1 MG TAB PO SCH (21:08)
[2023-04-22] MEDS: Cyclobenzaprine 10 MG TAB PO PRN (21:08)
[2023-04-23] MEDS: Ketorolac Tromethamine 30 MG/ML VIAL IVP SCH ×4 (05:03→22:07)
[2023-04-23] MEDS: traMADol HCl 50 MG TAB PO SCH ×4 (05:04→22:06)
[2023-04-23] MEDS: Acetaminophen 325 MG TAB PO SCH ×4 (05:05→22:05)
[2023-04-23] MEDS: tiZANidine HCl 4 MG TAB PO SCH ×2 (09:02→20:47)
[2023-04-23] MEDS: Gabapentin 400 MG CAP PO SCH ×3 (09:02→20:47)
[2023-04-23] MEDS: Senokot S 8.6-50 MG TAB PO SCH ×2 (09:02→20:47)
[2023-04-23] MEDS: Aspirin 81 mg Enteric Coated Tablet PO SCH ×2 (09:02→20:47)
[2023-04-23] MEDS: Polyethylene Glycol 3350 17 GM Packet PO SCH (09:03)
[2023-04-23] MEDS: Famotidine/PF 20 mg/2ml Vial SLOW IVP SCH ×2 (09:03→20:48)
[2023-04-23] MEDS: Acetaminophen/Codeine 30-300mg Tablet PO SCH ×3 (12:58→22:07)
[2023-04-23] MEDS: Pramipexole Di-HCl 1 MG TAB PO SCH (20:47)
[2023-04-24] MEDS: traMADol HCl 50 MG TAB PO SCH ×4 (05:58→22:11)
[2023-04-24] MEDS: Acetaminophen 325 MG TAB PO SCH ×4 (05:59→22:51)
[2023-04-24] MEDS: Ketorolac Tromethamine 30 MG/ML VIAL IVP SCH (05:59)
[2023-04-24] MEDS: Acetaminophen/Codeine 30-300mg Tablet PO SCH ×4 (06:05→22:11)
[2023-04-24] MEDS: Senokot S 8.6-50 MG TAB PO SCH ×2 (09:10→21:14)
[2023-04-24] MEDS: Gabapentin 400 MG CAP PO SCH ×3 (09:10→20:00)
[2023-04-24] MEDS: Aspirin 81 mg Enteric Coated Tablet PO SCH ×2 (09:11→20:00)
[2023-04-24] MEDS: tiZANidine HCl 4 MG TAB PO SCH ×2 (09:11→20:01)
[2023-04-24] MEDS: Polyethylene Glycol 3350 17 GM Packet PO SCH (09:11)
[2023-04-24] MEDS: Famotidine 20 MG TAB PO SCH ×2 (09:12→20:00)
[2023-04-24] MEDS: Ibuprofen 200 MG TAB PO SCH ×2 (15:36→22:10)
[2023-04-24] MEDS: Pramipexole Di-HCl 1 MG TAB PO SCH (20:00)
[2023-04-25] MEDS: Ibuprofen 200 MG TAB PO SCH ×3 (05:18→23:50)
[2023-04-25] MEDS: traMADol HCl 50 MG TAB PO SCH (05:19)
[2023-04-25] MEDS: Acetaminophen/Codeine 30-300mg Tablet PO SCH ×4 (05:19→23:50)
[2023-04-25] MEDS: Acetaminophen 325 MG TAB PO SCH ×4 (06:14→23:49)
[2023-04-25] MEDS: Famotidine 20 MG TAB PO SCH ×2 (07:50→20:28)
[2023-04-25] MEDS: Senokot S 8.6-50 MG TAB PO SCH ×2 (07:50→20:27)
[2023-04-25] MEDS: tiZANidine HCl 4 MG TAB PO SCH ×2 (07:50→20:27)
[2023-04-25] MEDS: Aspirin 81 mg Enteric Coated Tablet PO SCH ×2 (07:50→20:28)
[2023-04-25] MEDS: Polyethylene Glycol 3350 17 GM Packet PO SCH (07:51)
[2023-04-25] MEDS: Gabapentin 400 MG CAP PO SCH ×3 (07:51→20:28)
[2023-04-25] MEDS ORDERED: traMADol HCl 50 MG TAB PO PRN (08:45)
[2023-04-25] MEDS: Pramipexole Di-HCl 1 MG TAB PO SCH (20:29)
[2023-04-26] MEDS: Ibuprofen 200 MG TAB PO SCH (05:51)
[2023-04-26] MEDS: Acetaminophen/Codeine 30-300mg Tablet PO SCH ×2 (05:51→11:46)
[2023-04-26] MEDS: Acetaminophen 325 MG TAB PO SCH ×2 (05:51→11:46)
[2023-04-26] MEDS: Senokot S 8.6-50 MG TAB PO SCH (07:35)
[2023-04-26] MEDS: Aspirin 81 mg Enteric Coated Tablet PO SCH (07:35)
[2023-04-26] MEDS: Gabapentin 400 MG CAP PO SCH (07:35)
[2023-04-26] MEDS: tiZANidine HCl 4 MG TAB PO SCH (07:35)
[2023-04-26] MEDS: Famotidine 20 MG TAB PO SCH (07:35)
[2023-04-26] MEDS: Polyethylene Glycol 3350 17 GM Packet PO SCH (11:32)
[2023-04-26 12:01] VITALS: BP 140/74; TEMP 97.9
== END 2023-04-26 13:14 | disposition home or self-care (01) | DRG 522 ==
LOC: ERS 20:43 → SURG B 22:43
PROVIDERS: ADMIT Specialist; ATTEND Specialist
PROC: 0SRB04Z Replacement of Left Hip Joint with Ceramic on Polyethylene Synthetic Substitute, Open Approach (ICD-10-PCS; principal; 2023-04-20)
DX: S72.012A Unspecified intracapsular fracture of left femur, initial encounter for closed fracture (principal); I10 Essential (primary) hypertension; E78.5 Hyperlipidemia, unspecified; F17.210 Nicotine dependence, cigarettes, uncomplicated; W01.0XXA Fall on same level from slipping, tripping and stumbling without subsequent striking against object, initial encounter; Y92.89 Other specified places as the place of occurrence of the external cause; Z90.49 Acquired absence of other specified parts of digestive tract; Z98.890 Other specified postprocedural states; Z79.899 Other long term (current) drug therapy; Z88.8 Allergy status to other drugs, medicaments and biological substances
CPT/HCPCS: 36415; 71045; 72170; 80048; 80053; 81001; 82550; 85025; 85610; 85730; 86850; 86900; 86901; 93005; 94760; 96374; 97139; C1713; C1776; J1100; J1170; J1885; J2272; J2405; J2704; J3010; J3370; J3490; J7050; S0028

== ENCOUNTER 2024-06-10 12:42 | Outpatient (CLI) | payer OTHER | END 2024-06-10 12:43 | disposition home or self-care (01) | LOC: SCSMRI 12:42 | PROVIDERS: ATTEND Neurological Surgery | DX: M47.14 Other spondylosis with myelopathy, thoracic region (principal); R29.898 Other symptoms and signs involving the musculoskeletal system; M47.812 Spondylosis without myelopathy or radiculopathy, cervical region; M47.816 Spondylosis without myelopathy or radiculopathy, lumbar region; Z98.890 Other specified postprocedural states | CPT/HCPCS: 36415; 72156; 72157; 72158; 82565 ==